=== PATIENT | female | born 1960 | race Caucasian/White ===

== ENCOUNTER 2019-05-25 11:23 | Emergency (ER) | payer OTHER ==
[~2019-05-25] VITALS: Ht 152.4 cm; Wt 70.0 kg
[2019-05-25 11:27] VITALS: Ht 152.4 cm; Wt 70.0 kg
[2019-05-25 12:58] VITALS: BP 121/76
== END 2019-05-25 12:58 | disposition home or self-care (01) ==
LOC: ED 11:23
DX: S61.412A Laceration without foreign body of left hand, initial encounter (principal); I10 Essential (primary) hypertension; E11.9 Type 2 diabetes mellitus without complications; E78.00 Pure hypercholesterolemia, unspecified; W26.8XXA Contact with other sharp object(s), not elsewhere classified, initial encounter; Y93.89 Activity, other specified; Y92.89 Other specified places as the place of occurrence of the external cause; Y99.8 Other external cause status